=== PATIENT | male | born 1950 | race Caucasian/White ===

== ENCOUNTER 2024-04-27 13:20 | Emergency (ER) | payer OTHER, SELFPAY ==
--- NOTE | 2024-04-27 13:52 | XR_ITS ---
Examination:Right hip AP, lateral, AP pelvis 3 views Technique: Hip AP lateral, AP pelvis, 3 views Exam date and time:April 27, 2024 1413 hours INDICATIONS: Onset right hip pain today. FINDINGS: Prominent osteopenia Bilateral mild to moderate hip osteoarthritis No right or left hip fracture or dislocation Bones of the pelvis intact Small opaque foreign body projects inferior to the right femoral head IMPRESSION: Bilateral mild to moderate hip osteoarthritis Small opaque foreign body projects inferior to the right femoral head.
[2024-04-27 13:56] VITALS: BP 134/71; PULSE 86; RESP 18; TEMP 37.1; O2SAT 99; BMI 27.7
[2024-04-27] MEDS: HYDROcodone/APAP 5/325 TABLET 1 TAB PO (14:05)
--- NOTE | 2024-04-27 15:09 | EDNOTE_ITS ---
Lower Extremity Injury RME/HPI General Chief Complaint: Hip Injury/Pain Stated Complaint: RIGHT HIP PAIN X 4 DAYS Time Seen by Provider: 04/27/24 13:52 Arrival date/time: 04/27/24 13:20 73-year-old male presents to the emergency department complaints of right hip pain ongoing x 4 days patient reports he periodically has pain in the right hip radiating down the right limb. Patient reports no fever no nausea or vomiting no saddle anesthesia no loss of bowel or bladder no recent injury Limitations: no limitations Related Data Home Medications ?Medication ?Instructions ?Recorded ?Confirmed Sertraline Hcl * (ZOLOFT *) 1 tab PO HS #0 tabs 07/18/16 ferrous sulfate 325 mg (65 mg 325 mg PO BIDWM #0 tabs 07/18/16 iron) tablet (Feosol) Previous Rx's ?Medication ?Instructions ?Recorded Hydrocodone/Acetaminophen * (NORCO 1 tab PO Q6H PRN PAIN #14 tabs 07/18/16 5/325 *) hydrocodone 5 mg-acetaminophen 325 1 tab PO BID PRN pain #10 tabs 04/27/24 mg tablet meloxicam 7.5 mg tablet 7.5 mg PO QDAY 7 days #7 tabs 04/27/24 Allergies Allergy/AdvReac Type Severity Reaction Status Date / Time NKA* Allergy Uncoded 04/27/24 13:22 Review of Systems Review of Systems Systems Reviewed: All systems reviewed, normal except as documented Constitutional Constitutional: Reports system reviewed and no additional complaints, except as documented, Denies fever(s) and Denies headache(s) Eyes Eyes: Reports system reviewed and no additional complaints, except as documented and Denies blurry vision ENT Ears, Nose, Mouth, and Throat: Reports system reviewed and no additional complaints, except as documented, Denies headache(s), Denies nasal congestion and Denies nasal discharge Cardiovascular Cardiovascular: Reports system reviewed and no additional complaints, except as documented, Denies chest pain and Denies dyspnea Respiratory Respiratory: Reports system reviewed and no additional complaints, except as documented, Denies chest congestion, Denies cough and Denies dyspnea Gastrointestinal Gastrointestinal: Reports system reviewed and no additional complaints, except as documented and Denies abdominal pain Musculoskeletal Musculoskeletal: Reports system reviewed and no additional complaints, except as documented, Denies abnormal gait, Reports arthralgias, Denies numbness, Reports radiating pain into limb, Reports stiffness and Denies tingling Integumentary/Breasts Skin/Breast: Reports system reviewed and no additional complaints, except as documented and Denies rash Neurologic Neurologic: Reports system reviewed and no additional complaints, except as documented, Reports as per HPI, Denies abnormal gait, Denies headache(s), Denies numbness and Denies tingling Past Medical History Past Medical History CARDIAC: Negative Cardiac Disorders or Congestive Heart Failure RESPIRATORY: Negative Chronic Obstructive Pulmonary Disease (COPD) or Asthma GENITOURINARY: Negative Renal Disease ENDOCRINE: Positive Diabetes Mellitus Type 2; Negative Diabetes Mellitus Type 1 HEMATOLOGIC: Negative Sickle Cell Disease Social History SMOKING STATUS: Never smoker ED Exam General Limitations: Present no limitations General appearance: Present alert and in no apparent distress Head Head exam: Present atraumatic, normocephalic and normal inspection Eye Eye exam: Present normal appearance, PERRL and EOMI; Absent conjunctival injection ENT ENT exam: Present normal exam, normal oropharynx and mucous membranes moist Neck Neck exam: Present normal inspection, full ROM and trachea midline Chest Chest inspection: Present normal inspection and symmetric chest wall rise Respiratory Respiratory exam: Present normal lung sounds bilaterally; Absent respiratory distress Cardiovascular Cardiovascular exam: Present regular rate, normal rhythm and normal heart sounds Abdominal Exam Abdominal exam: Present soft and normal bowel sounds; Absent distention, tender ness, guarding, rebound or rigidity Extremities Exam Extremities exam: Present normal inspection, full ROM and tenderness (Right hip pain); Absent joint swelling Back Exam Back exam: Present normal inspection and full ROM Neurological Exam Neurological exam: Present alert, oriented X3, CN II-XII intact, normal gait and reflexes normal; Absent motor sensory deficit Psychiatric Psychiatric exam: Present normal affect and normal mood Skin Skin exam: Present warm, dry, intact and normal color Course Quality Measures none Orders Category Date Time Status XR hip RT w pelvis 2-3V Stat Exams 04/27/24 13:52 Completed HYDROcodone*/APAP 5/325 [[place] 5/325] Med 04/27/24 13:52 Discontinued 1 tab PO X1 ONE Vital Signs Vital signs: Vital Signs Temperature 98.8 F 04/27/24 13:56 Pulse Rate 86 04/27/24 13:56 Respiratory Rate 18 04/27/24 13:56 Blood Pressure 134/71 H 04/27/24 13:56 Pulse Oximetry (%) 99 04/27/24 13:56 Oxygen Delivery Method Room Air 04/27/24 13:56 O2 saturation 99% room air WNL Extremity Injury, Lower MDM Narrative MDM Narrative:: 73-year-old male presents to the emergency department complaints of right hip pain ongoing x 4 days patient reports he periodically has pain in the right hip radiating down the right limb. Patient reports no fever no nausea or vomiting no saddle anesthesia no loss of bowel or bladder no recent injury Imaging of right hip obtained no acute emergent findings noted Patient given pain medication here and discharged home with pain meds Patient discharged home in no distress to follow-up with primary care doctor in the next 24 to 48 hours and for any worsening symptoms to return to the ER immediately Patient data External records reviewed:: [facility] previous records Clinical information provided by:: patient Social determinants that could affect healthcare access:: none Patient has the following chronic illnesses:: See history How is presenting disease/condition affected by chronic disease/condition?: exacerbated by Evaluation data The following diagnostics were reviewed and interpreted by me:: radiology exam(s) Lab and/or radiology exams considered but not ordered:: Radiology obtain Interpretation Summary: Reviewed by me Medications / Prescriptions Medications or Prescriptions considered but not ordered:: Given Medication administrations:: Medication Administration History Discontinued Medications Hydrocodone Bitart/Acetaminophen (Hydrocodone/Apap 5/325 Tablet) 1 tab PO X1 ONE Stop: 04/27/24 13:53 Last Admin: 04/27/24 14:05 Dose: 1 tab Documented By: OA Given Consultations Consultation(s) initiated? (list below): No Diagnosis Extremity Injury, Lower Differential Diagnosis: other (Hip fracture, hip strain) Most likely diagnosis given after review of the tests above:: Hip sprain Admission Indicated Admission indicated?: not indicated Admission Request Was there a request for admission?: No Disposition Plan Disposition Plan: Discharge Discharge Attestation Discharge Attestation: The patient and all family members were given an opportunity to ask questions and understood the discharge instructions. Discharge instructions specifically effects, indications for sooner follow up or return to the emergency department, and the expected course of current diagnosis. Patient condition: Stable Discharge Plan Plan Patient Disposition: HOME (Self Care) Disposition Comment: Stable Prescriptions/Referrals Prescriptions/Med Rec: New hydrocodone-acetaminophen 5-325 mg tablet 1 tab PO BID MDD 10 PRN (Reason: pain) Qty: 10 0RF meloxicam 7.5 mg tablet 7.5 mg PO QDAY 7 Days Qty: 7 0RF No Action ferrous sulfate [Feosol] 1 TAB tablet 325 mg PO BIDWM Qty: 0 Sertraline Hcl * (ZOLOFT *) tablet 1 tab PO HS Qty: 0 Hydrocodone/Acetaminophen * (NORCO 5/325 *) 1 TAB tablet 1 tab PO Q6H PRN (Reason: PAIN) Qty: 14 0RF Referrals: Ney Ye MD [Primary Care Provider] - In 1 week Problem List Clinical Impression: Osteoarthritis of right hip Patient/Caregiver Discharge Instructions Education Materials: Osteoarthritis Additional Instructions: Please follow up with your primary care doctor in the next 24-48hrs for any worsening symptoms return here immediately Print Language: Belgian Stand Alone Forms: Mariel Award Info., Patient Portal Info Letter PA/ELECTRICIAN [employer]ATION ASSISTANT Supervising Physician PA/ERIKA Supervising Physician: Dr Hirsch
== END 2024-04-27 16:21 | disposition home or self-care (01) ==
PROVIDERS: Emergency Provider Emergency Medicine; PCP Family Medicine
DX: M16.11 Unilateral primary osteoarthritis, right hip (principal)
CPT/HCPCS: 73502; 99283; A9270

== ENCOUNTER 2024-05-18 16:54 | Inpatient (IN) | payer OTHER, SELFPAY ==
[2024-05-18] VITALS (7 sets, daily range): BP systolic 118–157; BP diastolic 55–70; PULSE 81–112; RESP 18–19; TEMP 36.4–36.6; O2SAT 97–100; BMI 26.7; BMI 26.9
--- NOTE | 2024-05-18 17:15 | EDRME_ITS ---
Rapid Medical Screening Exam E Arrival date/time: 05/18/24 16:54 73-year-old male with no known medical history presents to the emergency room with a chief complaint of a low hemoglobin level. Patient states he was called by the [facility] for a hemoglobin level of 5. Patient's only symptom is weakness and he denies any bleeding. I have greeted and performed a focused initial assessment of this patient. A comprehensive ED assessment and evaluation of the patient, analysis of all test results, and completion of the medical decision making process will be conducted by additional ED providers. Chief Complaint: General Adult/Misc Complain Vital signs: Vital Signs Temperature 97.5 F 05/18/24 17:10 Pulse Rate 112 H 05/18/24 17:10 Respiratory Rate 18 05/18/24 17:10 Blood Pressure 130/55 L 05/18/24 17:10 Pulse Oximetry (%) 97 05/18/24 17:10 Oxygen Delivery Method Room Air 05/18/24 17:10 Vital signs reviewed by provider: Yes
[2024-05-18 17:56] LABS: Basophils % (Auto) 1 % (0-2.5); Eosinophils # (Auto) 0.1 Thou/mm3 (0.0-0.5); Eosinophils % (Auto) 1 % (0-10); Immature Granulocytes % (Auto) 1 % (0-0); Immature Granulocytes Auto 0.03 Thou/mm3 (0.00-0.00); Lymphocytes # (Auto) 0.7 Thou/mm3 (1.0-4.8); Lymphocytes % (Auto) 11 % (10-50); Mean Corpuscular HGB Conc 32.3 g/dl (31.0-37.0); Mean Corpuscular Hemoglobin 29.1 pg (25.0-35.0); Mean Corpuscular Volume 90 fL (80-100); Monocytes # (Auto) 0.4 Thou/mm3 (0.0-0.8); Monocytes % (Auto) 7 % (0-12); Neutrophils % (Auto) 80 % (37-80); Nucleated Red Blood Cell % 0 /100 WBC (0); Platelet Count 225 Thou/mm3 (140-440); RDW Standard Deviation 48.8 fL (35.1-43.9); Red Blood Count 1.75 Miln/mm3 (4.50-5.90); White Blood Count 6.3 Thou/mm3 (3.8-10.6)
[2024-05-18 18:03] LABS: Hematocrit 15.8 % (41.0-53.0); Hemoglobin 5.1 g/dL (13.5-16.0)
[2024-05-18 18:12] LABS: INR 1.1 (0.9-1.3); Partial Thromboplastin Time 39.7 Seconds (22.0-36.0)
[2024-05-18 18:30] LABS: Alanine Aminotransferase 8 U/L (10-49); Albumin, Serum 3.9 gm/dL (3.4-4.8); Albumin/Globulin Ratio 1.6 (1.2-2.2); Alkaline Phosphatase 68 U/L (46-116); Anion Gap 12 (7-16); Aspartate Amino Transferase 17 U/L (0-34); BUN/Creatinine Ratio 15 Ratio (12-20); Bilirubin,Total 0.2 mg/dL (0.3-1.2); Blood Urea Nitrogen 54 mg/dL (9-23); Calcium 9.1 mg/dL (8.3-10.6); Calcium (Corrected) 9.2 mg/dL (8.5-10.1); Carbon Dioxide 18.1 mMol/L (20.0-31.0); Chloride 111 mMol/L (98-107); Creatinine (Component) 3.7 mg/dL (0.6-1.3); Estimated Creatinine Clearance 17.8 mL/min (>60); Globulin 2.5 gm/dL (2.3-3.5); Glucose 138 mg/dL (74-106); Osmolality,Calculated 297 (275-295); Potassium 5.7 mMol/L (3.4-5.1); Sodium 141 mMol/L (136-145); Total Protein 6.4 gm/dL (5.7-8.2); eGFR 17 See Note
--- NOTE | 2024-05-18 18:44 | XR_ITS ---
Examination: CT abdomen and pelvis without contrast. Coronal 3-D reconstructions. Sagittal 2-D reconstructions. Date and time of exam: May 18, 2024 1916 hrs. Comparison October 21, 2022 Indications: Upper gastrointestinal bleeding today CTDI: vol (mGy): 8.13 DLP: (mGycm): 188 Technique: Axial images of the abdomen have been obtained, 3 mm slice thickness Intravenous contrast material has not been administered. Low dose protocols were performed. One or more of the following dose reduction techniques were used; automated exposure control, adjustment of the mA and/or KV according to patient size, use of iterative reconstruction technique. Findings: Small right pleural effusion Numerous BB densities in the left chest and upper abdomen including in the liver and spleen Cholelithiasis No pancreatic or adrenal mass No hydronephrosis No bowel obstruction negative for pneumoperitoneum Normal appendix No diverticulitis Normal seminal vesicles Transverse prostate dimension 4.8 cm No bladder mass or bladder calculi, mild bladder wall thickening and small anterior bladder diverticulum Moderate osteopenia Impression: Findings are Sharp injury Cholelithiasis No CT findings of bowel obstruction diverticulitis or appendicitis Moderate prostatomegaly Cystitis pattern Consider nuclear medicine gastrointestinal bleeding study for CTA abdomen pelvis post intravenous contrast follow-up to the patient's presentation
--- NOTE | 2024-05-18 18:49 | PD.EDADULT ---
ED General RME/HPI General Chief complaint: General Adult/Misc Complain Stated complaint: NEEDS BLOOD TRANSFUSION, LOW HEM[facility]GLOBIN [facility] Time Seen by Provider: 05/18/24 18:01 Arrival date/time: 05/18/24 16:54 RME / HPI RME / HPI narrative: 73-year-old male patient with significant history of hypertension, hypercholesterolemia, was sent to us from the [place] for evaluation regarding low hemoglobin. Patient went to PCP yesterday and today was called to go to the emergency room for a severe anemia. Patient noticed black stool today however he was thinking it was secondary to tomato juice he was drinking. Patient denies any abdominal pain. Patient has been complaining of generalized body weakness, and feeling very tired. No vomiting blood. Patient is not taking any blood thinner. Related Data Home Medications ?Medication ?Instructions ?Recorded ?Confirmed Sertraline Hcl * (ZOLOFT *) 1 tab PO HS #0 tabs 07/18/16 ferrous sulfate 325 mg (65 mg 325 mg PO BIDWM #0 tabs 07/18/16 iron) tablet (Feosol) Previous Rx's ?Medication ?Instructions ?Recorded Hydrocodone/Acetaminophen * (NORCO 1 tab PO Q6H PRN PAIN #14 tabs 07/18/16 5/325 *) hydrocodone 5 mg-acetaminophen 325 1 tab PO BID PRN pain #10 tabs 04/27/24 mg tablet Allergies Allergy/AdvReac Type Severity Reaction Status Date / Time NKA Allergy Uncoded 05/18/24 16:57 Review of Systems Review of Systems Narrative Review of Systems: Review of system reviewed and within normal limits except mentioned in HPI ED Exam Narrative Physical exam: VITAL SIGNS: Reviewed. GENERAL APPEARANCE: Alert and interactive, follows commands, no acute distress, HEAD AND FACE: Non-traumatic. ENT: PERRL, pale conjunctiva, eyelid no trauma, Mucous membrane moist. NECK: Supple, nontender, no nuchal rigidity. CHEST: No tenderness, no crepitus, no paradoxical movement, no retractions. LUNGS: Clear, well ventilated, symmetric, no rales, no wheezing, no ronchi, no stridor, good breath sounds bilaterally. HEART: Regular rate, regular rhythm, no murmur, no gallops. ABDOMEN: Soft, positive bowel sounds, nondistended, no guarding, nontender, no rebound, no masses, RECTAL: Deferred. GENITAL: Deferred. NEUROLOGICAL: Gross motor function intact sensory function intact, Appropriate for age. MUSCULOSKELETAL: low back nontender, full range of motion. EXTREMITIES: Nontender, full range of motion. SKIN: Color pale, dry, no rash, no lacerations, no abrasions, no contusions. LYMPHATICS: Deferred. Course Quality Measures none Orders Category Date Time Status COVID-19 Screening Questionnaire NOW Care 05/18/24 19:19 Active Decision to Admit X1 Care 05/18/24 19:19 Active Occult Blood,Stool (Nursing) ONCE Care 05/18/24 18:37 Active Transfuse,blood/blood products ONCE Care 05/18/24 18:12 Active Consult to Gastroenterology Stat Cons 05/18/24 18:[address] abdomen pelvis wo con Stat Exams 05/18/24 18:44 Taken CBC Stat Lab 05/18/24 17:35 Completed CMP [Comprehensive Metabolic Panel] Stat Lab 05/18/24 17:35 Completed Occult Blood, Stool (LAB) Stat Lab 05/18/24 18:38 Completed PT [Prothrombin Time with INR] Stat Lab 05/18/24 17:35 Completed PTT [Partial Thromboplastin Time] Stat Lab 05/18/24 17:35 Completed Type and Screen Stat Lab 05/18/24 17:35 Results prbc [Red Blood Cells] Stat Lab 05/18/24 17:35 Results Pantoprazole Inj [Protonix Inj] Med 05/18/24 18:44 Discontinued 80 mg IV X1 ONE cefTRIAXone/D5w 1gm IV premix [Rocephin/D5w 1gm IV Med 05/18/24 18:45 Discontinued premix] 50 ml IV X1 Vital Signs Vital signs: Vital Signs Temperature 97.5 F 05/18/24 17:10 Pulse Rate 112 H 05/18/24 17:10 Respiratory Rate 18 05/18/24 17:10 Blood Pressure 130/55 L 05/18/24 17:10 Pulse Oximetry (%) 97 05/18/24 17:10 Oxygen Delivery Method Room Air 05/18/24 17:10 [facility] Patient data External records reviewed:: None Clinical information provided by:: patient and family Social determinants that could affect healthcare access:: none Patient has the following chronic illnesses:: Hypertension How is presenting disease/condition affected by chronic disease/condition?: uneffected by Evaluation data The following diagnostics were reviewed and interpreted by me:: lab results and radiology exam(s) Lab and/or radiology exams considered but not ordered:: None Interpretation Summary: Hemoglobin of 5.1 hematocrit of 15.8. Platelets normal rest of the labs is significant for potassium 5.7, creatinine of 3.7. Medications Medications considered but not ordered:: None Medication administrations:: Medication Administration History Discontinued Medications Ceftriaxone Sodium/Dextrose (Rocephin/D5w 1gm Iv Premix) 50 mls @ 100 mls/hr IV X1 ONE Stop: 05/18/24 19:14 Pantoprazole Sodium (Pantoprazole Inj 40 Mg Vial) 80 mg IV X1 ONE Stop: 05/18/24 18:45 Supraduction IV, pantoprazole IV, and IV fluids for hydration Consultations Consultation(s) initiated? (list below): Yes Consultation #1 (Physician, Specialty, Details): Spoke with Dr. Choi, GI specialist on-call, thank you Dr. Choi Diagnosis Differential Diagnosis ED Complaint MDM: Upper GI bleed, CKD, hypertension Most likely diagnosis given after review of the tests above:: Upper GI bleed Admission Indicated Admission indicated?: indicated Explain why admission is indicated or not indicated:: patient is to be admitted for further management. Admission Request Was there a request for admission?: Yes Admission Attestation Admission request attestation: Discussed case with [Dr. Murrieta] from Hospitalist service regarding admission. Discussed patients ED course, exam findings, labs, and radiology results. The Hospitalist [agree] to accept the patient for admission. Disposition Plan Disposition Plan: Admit Medical Decision Making MDM Narrative MDM Narrative: 73-year-old male patient with significant history of hypertension, hypercholesterolemia, [facility] Patient went to PCP yesterday and today was called to go to the emergency room for a severe anemia. Patient noticed black stool today however he was thinking it was secondary to tomato juice he was drinking. Patient denies any abdominal pain. Patient has been complaining of generalized body weakness, and feeling very tired. No vomiting blood. Patient is not taking any blood thinner. Patient's workup significant for hemoglobin of 5.1 we did a rectal exam, came back with black tarry stool strongly positive occult blood. Spoke with Dr. Choi, GI specialist on-call, discussed the case, and thank you Dr. Choi for accepting the consult Differential Diagnosis Differential Diagnosis: Upper GI bleed, CKD, hypertension Lab Data 05/18/24 17:35 05/18/24 17:35 Labs: Lab Results 05/18/24 05/18/24 Range/Units 17:35 18:38 WBC 6.3 (3.8-10.6) Thou/mm3 RBC 1.75 L* (4.50-5.90) Miln/mm3 Hgb 5.1 L* (13.5-16.0) g/dL Hct 15.8 L* (41.0-53.0) % MCV 90 (80-100) fL MCH 29.1 (25.0-35.0) pg MCHC 32.3 (31.0-37.0) g/dl RDW Std Deviation 48.8 H (35.1-43.9) fL Plt Count 225 (140-440) Thou/mm3 Neut % (Auto) 80 (37-80) % Lymph % (Auto) 11 (10-50) % [place] % (Auto) 7 (0-12) % Eos % (Auto) 1 (0-10) % Baso % (Auto) 1 (0-2.5) % Neut # (Auto) 5.0 (1.8-7.7) Thou/mm3 Lymph # (Auto) 0.7 L (1.0-4.8) Thou/mm3 [place] # (Auto) 0.4 (0.0-0.8) Thou/mm3 Eos # (Auto) 0.1 (0.0-0.5) Thou/mm3 Baso # (Auto) 0.0 (0.0-0.2) Thou/mm3 Immature Gran # (Auto) 0.03 H (0.00-0.00) Thou/mm3 Absolute Nucleated RBC 0.00 (0.00-0.00) Thou/mm3 Immature Gran % 1 H (0-0) % Nucleated RBC % 0 (0) /100 WBC PT 12.0 (9.0-12.2) Seconds INR 1.1 (0.9-1.3) APTT 39.7 H (22.0-36.0) Seconds Sodium 141 (136-145) mMol/L Potassium 5.7 H (3.4-5.1) mMol/L Chloride 111 H (98-107) mMol/L Carbon Dioxide 18.1 L (20.0-31.0) mMol/L Anion Gap 12 (7-16) BUN 54 H (9-23) mg/dL Creatinine 3.7 H (0.6-1.3) mg/dL Estim Creat Clear Calc 17.8 L (>60) mL/min eGFR 17 L (60 - ) See Note BUN/Creatinine Ratio 15 (12-20) Ratio Glucose 138 H (74-106) mg/dL Calculated Osmolality 297 H (275-295) Calcium 9.1 (8.3-10.6) mg/dL Corrected Calcium 9.2 (8.5-10.1) mg/dL Total Bilirubin 0.2 L (0.3-1.2) mg/dL AST 17 (0-34) U/L ALT 8 L (10-49) U/L Alkaline Phosphatase 68 (46-116) U/L Total Protein 6.4 (5.7-8.2) gm/dL Albumin 3.9 (3.4-4.8) gm/dL Globulin 2.5 (2.3-3.5) gm/dL Albumin/Globulin Ratio 1.6 (1.2-2.2) Stool Occult Blood Positive A (Negative) Blood Type O Positive Antibody Screen NEGATIVE Crossmatch See Detail Blood Bank Wristband ID Yes Discharge Plan Plan Patient Disposition: Admit Acute Care w/in Hospital Disposition Comment: Guarded Prescriptions/Referrals Prescriptions/Med Rec: No Action ferrous sulfate [Feosol] 1 TAB tablet 325 mg PO BIDWM Qty: 0 Sertraline Hcl * (ZOLOFT *) tablet 1 tab PO HS Qty: 0 Hydrocodone/Acetaminophen * (NORCO 5/325 *) 1 TAB tablet 1 tab PO Q6H PRN (Reason: PAIN) Qty: 14 0RF hydrocodone-acetaminophen 5-325 mg tablet 1 tab PO BID MDD 10 PRN (Reason: pain) Qty: 10 0RF Referrals: Leonid Raman MD [Primary Care Provider] - In 1 week Problem List Clinical Impression: Acute upper gastrointestinal bleeding, Severe anemia Patient/Caregiver Discharge Instructions Print Language: Hong Konger Stand Alone Forms: Mariel Award Info., Patient Portal Info Letter
[2024-05-18 18:59] LABS: OBS Developer Lot # 2-24-551749; OBS Performed By MADRG3; OBS QC OK? Yes; Occult Blood, Stool Positive (Negative)
--- NOTE | 2024-05-18 21:36 | ESHP_ITS ---
Documentation for date of: 05/18/24 [facility] History of Present Illness History of present illness: Mr. Mchugh is a 73-year-old male with past medical history of hypertension, hypercholesterolemia and diabetes mellitus who presented to [facility] on 05/18/2024 with a chief complaint of low hemoglobin. Patient's at bedside, patient is hard of hearing and assisted in procuring history, patient complains of generalized body weakness, tiredness and black stools. Patient reported that he followed up with his PCP at [facility] and did lab work received a call from [facility] for further evaluation regarding low hemoglobin. Patient did notice black stools however attributed to his diet. Otherwise patient denies any diarrhea, nausea, vomiting and other symptoms. Patient complains of right calf pain and right hip pain, no edema noted, patient does have history of extensive osteoarthritis. ED Course: ED Vitals: On presentation in ED BP 130/55, P 112, RR 18, temp 97.5, O2 sat 97 on room air ED Labs: Labs in ED significant for RBC 1.75, hemoglobin 5.1, hematocrit 15.8, APTT 39.7, Potassium 5.7, chloride 111, bicarb 18.1, BUN 54, creatinine 3.7, GFR 17, glucose 138, osmolality 297, total bilirubin 0.2. Stool occult blood positive in ED. ED Imaging:CT abdomen pelvis shows sharp injury, cholelithiasis, moderate prostatomegaly, cystitis. ED Treatment:Patient was given Protonix 80 mg IV x 1, ceftriaxone x 1 in ED. GI was consulted in ED for further workup. Review of Systems Review of Systems Narrative Review of Systems: ROS: -CONSTITUTIONAL: Denies weight loss, fever and chills. -HEENT: Denies changes in vision and hearing. -RESPIRATORY: Denies SOB and cough. -CV: Denies palpitations and Chest Pain. -GI: Denies abdominal pain, nausea, vomiting,constipation and diarrhea. Positive for dark stools. -: Denies dysuria and urinary frequency. -MSK: Denies myalgia and joint pain. Positive for right calf pain. -SKIN: Denies rash and pruritus. -NEUROLOGICAL: Denies headache and syncope. -PSYCHIATRIC: Denies recent changes in mood. Denies anxiety and depression. Past Medical History Past Medical History Comments PMH COMMENT: PMH: Positive for hypertension, hypercholesterolemia, osteoarthritis and diabetes mellitus PSHx: Left arm surgery, Shrapnel injury during active service. Allergies: No known drug and food allergies Social history: -Smoking: Positive for heavy smoking in past, reports more than 40 pack years -Alcohol Use: Positive for alcohol use in past, occasional alcohol use no -Illicit Drug Use: Denies -Occupation: [employer] -Martial Status: Family History: Denies pertinent family history. Exam Vital Signs Temp Pulse Resp BP Pulse Ox O2 Del Method 97.9 F 86 19 138/70 H 100 Room Air 05/18/24 21:33 05/18/24 21:33 05/18/24 21:33 05/18/24 21:33 05/18/24 21:05/18/24 21:33 Narrative Exam Physical Exam General: Awake and in no acute distress. Conversational and non-toxic appearing. Hard of hearing. HEENT: Normocephalic, atraumatic, mucous membranes dry. Heart: Regular rate and rhythm, no murmurs. Lungs: Clear to auscultation with no wheezing or crackles. Abdomen: Soft, nondistended, nontender, positive bowel sounds. ?No guarding or rebound tenderness. Neurologic: Alert and oriented x3, no gross neurological deficit, and patient able to move all 4 extremities. Extremities: No edema. Skin: No rash or ecchymoses. Results: Labs 05/18/24 17:35 05/18/24 21:11 Labs: Short CBC 05/18/24 Range/Units 17:35 WBC 6.3 (3.8-10.6) Thou/mm3 Hgb 5.1 L* (13.5-16.0) g/dL Hct 15.8 L* (41.0-53.0) % Plt Count 225 (140-440) Thou/mm3 BMP 05/18/24 17:35 Sodium 141 Potassium 5.7 H Chloride 111 H Carbon Dioxide 18.1 L BUN 54 H Creatinine 3.7 H Glucose 138 H Calcium 9.1 Liver Function 05/18/24 Range/Units 17:35 Total Bilirubin 0.2 L (0.3-1.2) mg/dL AST 17 (0-34) U/L ALT 8 L (10-49) U/L Alkaline Phosphatase 68 (46-116) U/L Albumin 3.9 (3.4-4.8) gm/dL Quality Measures Quality Measures none Advance care planning discussed with:: patient and spouse Medications Home Medications and Allergies Home Medications ?Medication ?Instructions ?Recorded ?Confirmed ?Type Sertraline Hcl * (ZOLOFT *) 1 tab PO HS #0 tabs History ferrous sulfate 325 mg (65 mg 325 mg PO BIDWM #0 tabs 07/18/16 History iron) tablet (Feosol) Allergies Allergy/AdvReac Type Severity Reaction Status Date / Time NKA Allergy Uncoded 05/18/24 16:57 Visit Medications Acetaminophen (Acetaminophen 325 Mg Tablet) 650 mg PO Q6H PRN PRN Reason: Mild Pain (1-3; Fever >101.5 Stop: 06/17/24 20:33 Albuterol/Ipratropium (Albuterol/Ipratropium (Duoneb) Rt Whitley 3 Ml Nebu) 3 ml INH Q6HRRT PRN PRN Reason: SHORTNESS OF BREATH OR WHEEZE Stop: 06/17/24 20:33 Dextrose (Dextrose 50%-Water Inj 50 Ml Syringe) 25 ml IV Q15MIN PRN PRN Reason: BG 50-70 responsive npo pt Stop: 06/17/24 20:41 Dextrose (Dextrose 50%-Water Inj 50 Ml Syringe) 50 ml IV Q15MIN PRN PRN Reason: BG <50 OR BG <70 & pt unresponsive Stop: 06/17/24 20:41 Glucagon (Glucagon Inj 1 Mg Vial) 1 mg IM Q15MIN PRN PRN Reason: BG <70, and no IV access Lactated Ringer's (Lactated Ringers) 1,000 mls @ 75 mls/hr IV .[id number] CELESTINA Stop: 06/17/24 20:44 Insulin Human Lispro (Insulin Lispro (Admelog) 1 Unit/0.01 Ml Unit) 0 unit SC AC CELESTINA; Protocol Stop: 06/18/24 07:29 Ondansetron HCl (Ondansetron Inj 2 Mg/Ml Inj 2 Ml) 4 mg IV Q6H PRN; Protocol PRN Reason: NAUSEA OR VOMITING Stop: 06/17/24 20:33 Pantoprazole Sodium (Pantoprazole Inj 40 Mg Vial) 40 mg IVP Q12HR CELESTINA Stop: 06/17/24 20:59 Discontinued Medications Ceftriaxone Sodium/Dextrose (Rocephin/D5w 1gm Iv Premix) 50 mls @ 100 mls/hr IV X1 ONE Stop: 05/18/24 19:14 Pantoprazole Sodium (Pantoprazole Inj 40 Mg Vial) 80 mg IV X1 ONE Stop: 05/18/24 18:45 Assessment & Plan Plan Assessment and plan: Summary: Mr. Mchugh is a 73-year-old male with past medical history of hypertension, hypercholesterolemia and diabetes mellitus who presented to [facility] on 05/18/2024 with a chief complaint of low hemoglobin. Patient admitted for GI Bleed Workup. #GI bleed upper versus lower #Melena #Anemia secondary to blood loss Followed up with his PCP at [facility] and did lab work received a call from [facility] for further evaluation regarding low hemoglobin, Hgb in ED 5.1, patient complains of dark stools, stool occult blood positive in ED. CT abdomen pelvis shows sharp injury, cholelithiasis, moderate prostatomegaly, cystitis. Plan: -IV Protonix twice daily -Clear liquid diet -Consulted GI, appreciate recommendations -Transfused 2 unit PRBC, follow posttransfusion H&H -Monitor CBC closely -IV LR maintenance fluids 75 cc/h -Follow iron panel, ferritin, vitamin B 12, folate, LDH, reticulocyte count #Acute kidney injury, likely prerenal #Hyperkalemia Potassium 5.7 on presentation, BUN 56, creatinine 3.5, GFR 18 on presentation. ASHANTI likely prerenal secondary to blood loss. Plan: -Repeat renal panel -LR maintenance fluids -Renally dose medication -Avoid nephrotoxic agent -Follow CMP in a.m. #Diabetes mellitus #Hypertension #Hyperlipidemia Pending med reconciliation -Sliding scale insulin -Follow hemoglobin A1c in a.m. -Hypoglycemia protocol in place -Fingerstick blood glucose monitoring -Resume home meds once reconciled -Blood pressure soft, continue to monitor -Patient reports using inhaler at home, DuoNebs as needed DVT prophylaxis: SCDs GI prophylaxis: IV Protonix twice daily Diet: Clear liquid diet Lines: Peripheral IV Code status: Full code Case discussed with Attending Dr. Kearns. Victorino Murrieta PGY1 Internal medicine Disclaimer: This note was dictated by speech recognition. Minor errors in laboratory chemical assistant may be present due to voice recognition software. Attending Provider Attestation/Addendum 73-year-old patient was referred from the [facility] for low hemoglobin. The patient also noticed melena over the last few days. Imaging obtained chest and abdomen showed multiple densities, foreign body that has been present since 2022. Patient is being admitted for further endoscopic workup packed red blood cells. We will continue to monitor his hemoglobin and hematocrit. His blood pressure is stable. He is not tachycardic. Review of all medications.
[2024-05-18] MEDS: RINGERS LACTATED 1000 ML 1,000 ML 75 ML IV (21:42)
[2024-05-18] MEDS: PANTOPRAZOLE INJ 40 MG VIAL 80 MG IV (21:42)
[2024-05-18 22:05] LABS: Albumin, Serum 3.8 gm/dL (3.4-4.8); Anion Gap 8 (7-16); BUN/Creatinine Ratio 16 Ratio (12-20); Blood Urea Nitrogen 56 mg/dL (9-23); Calcium 8.8 mg/dL (8.3-10.6); Chloride 115 mMol/L (98-107); Creatinine (Component) 3.5 mg/dL (0.6-1.3); Estimated Creatinine Clearance 18.8 mL/min (>60); Glucose 88 mg/dL (74-106); Osmolality,Calculated 301 (275-295); Phosphorous 5.1 mg/dL (2.4-5.1); Potassium 5.3 mMol/L (3.4-5.1); Sodium 144 mMol/L (136-145); eGFR 18 See Note
--- NOTE | 2024-05-18 22:23 | XR_ITS ---
Examination: Venous duplex lower extremity sonogram, bilateral. Date and time of exam: May 18, 2024 1028 hrs. Indications: Bilateral calf pain onset today Technique: Multiple sonographic images of the deep venous system have been obtained. B-mode/2-D grayscale imaging of vascular structures and Doppler spectral analysis (waveforms) and color performed Both legs are examined. Findings: Deep venous systems do not demonstrate abnormal echogenicity. All visualized deep veins exhibit compressibility. All visualized deep veins exhibit augmentation. Impression: Negative for deep vein thrombosis
--- NOTE | 2024-05-18 22:47 | PD.IMCONS ---
HPI Data of Consult Requesting Physician: Mariano Kearns MD Primary Care Provider: Leonid Raman MD Consult Narrative Reason for consult: Melena, H/H5.04/19.8 History of present illness: 73 years old male presented to the hospital with weakness sent by the PCP he has been having melanotic stools Rectal exam showed grossly Hemoccult positive stool Presenting hemoglobin hematocrit 5.1 and 15.8 with a platelet count of 20 25,000 BUN/creatinine 56 and 3.5 Patient has a history of essential hypertension hyperlipidemia diabetes mellitus type 2 CT scan of the abdomen pelvis without contrast showed cholelithiasis cc:: cc: Mariano Kearns MD Review of Systems Review of Systems Systems Reviewed: All systems reviewed, normal except as documented Past Medical History Surgical History OTHER SURGICAL HX: As in the history of present illness Meds Home Medications and Allergies Home Medications ?Medication ?Instructions ?Recorded ?Confirmed ?Type Sertraline Hcl * (ZOLOFT *) 1 tab PO HS #0 tabs 07/18/16 History ferrous sulfate 325 mg (65 mg 325 mg PO BIDWM #0 tabs 07/18/16 History iron) tablet (Feosol) Allergies Allergy/AdvReac Type Severity Reaction Status Date / Time NKA Allergy Uncoded 05/18/24 16:57 Exam Vital Signs Temp Pulse Resp BP Pulse Ox O2 Del Method 97.6 F 88 18 145/65 H 99 Room Air 05/18/24 22:31 05/18/24 22:31 05/18/24 22:31 05/18/24 22:31 05/18/24 22:31 05/18/24 21:33 Constitutional Comments: Chronically ill-appearing Routine Respiratory Exam Comments: Normal to auscultation Routine Abdominal Exam Comments: Soft nontender Results Labs 05/18/24 17:35 05/18/24 21:11 Labs: Short CBC 05/18/24 Range/Units 17:35 WBC 6.3 (3.8-10.6) Thou/mm3 Hgb 5.1 L* (13.5-16.0) g/dL Hct 15.8 L* (41.0-53.0) % Plt Count 225 (140-440) Thou/mm3 BMP 05/18/24 05/18/24 17:35 21:11 Sodium 141 144 Potassium 5.7 H 5.3 H Chloride 111 H 115 H Carbon Dioxide 18.1 L 21.0 BUN 54 H 56 H Creatinine 3.7 H 3.5 H Glucose 138 H 88 D Calcium 9.1 8.8 Liver Function 05/18/24 05/18/24 Range/Units 17:35 21:11 Total Bilirubin 0.2 L (0.3-1.2) mg/dL AST 17 (0-34) U/L ALT 8 L (10-49) U/L Alkaline Phosphatase 68 (46-116) U/L Albumin 3.9 3.8 (3.4-4.8) gm/dL Assessment and Plan Additional Assessment & Plan Additional Plan: # Melena # Acute posthemorrhagic anemia Plan Agree with the blood transfusion Consent obtained for fiberoptic esophagogastroduodenoscopy with possible therapeutic intervention possible biopsy under intravenous moderate sedation scheduled for tomorrow Clear liquid diet N.p.o. at 9 AM tomorrow Other medical problems include Essential hypertension Hyperlipidemia Diabetes mellitus type 2 Renal insufficiency
--- NOTE | 2024-05-18 22:49 | PC.NURSE ---
Report called . pt taken to on monitor by rn
--- NOTE | 2024-05-18 23:32 | PC.NURSE ---
report called to danis SINGH. pt taken to by myself on monitor
[2024-05-19] VITALS (10 sets, daily range): BP systolic 126–154; BP diastolic 67–77; PULSE 64–93; RESP 15–21; TEMP 36.3–36.7; O2SAT 94–98
[2024-05-19 04:31] LABS: Collection Type, Urine Clean Catch
--- NOTE | 2024-05-19 04:38 | EKG_ITS ---
[facility] Test Date: 2024-05-19 Pat Name: FADIA MOYA Department: Room: S380A Gender: Male Cover Cutter: [id number] : 1950 Requested By: Mariano Matthews Order Number: [id number] Reading MD: Mariano Matthews Measurements Intervals [place] Rate: 71 P: 54 NH: 157 QRS: 21 QRSD: 74 T: 46 QT: 399 QTc: 434 Interpretive Statements SINUS RHYTHM MINIMAL VOLTAGE CRITERIA FOR LVH, CONSIDER NORMAL VARIANT [MEETS CRITERIA IN ONE OF: R(aVL), S(V1), R(V5), R(V5/V6)+S(V1)] WARNING: DATA QUALITY MAY AFFECT INTERPRETATION Compared to ECG 10/21/2022 20:18:58 No significant changes /store/S0/[id number]/ecg/[id number].pdf
[2024-05-19 04:54] LABS: Bilirubin,Urine Negative (Negative); Blood,Urine Negative (Negative); Clarity,Urine Clear (Clear/Hazy); Color,Urine Colorless (Lt Yel-Yel); Glucose, Urine Negative (Negative); Ketones,Urine Negative (Negative); Leukocyte Esterase,Urine Positive (Negative); Nitrite,Urine Negative (Negative); PH,Urine 5.5 (5.0-7.0); Protein,Urine Negative (Neg - Trace); RBC,Urine 1 /hpf (0-3); Specific Gravity,Urine 1.014 (1.001-1.035); Squamous Epithelial Cell,Urine < 1 /hpf (0-5); Urobilinogen,Urine Negative mg/dL (0.0-1.0); WBC,Urine 5 /hpf (0-5)
[2024-05-19 05:47] LABS: Basophils % (Auto) 1 % (0-2.5); Eosinophils # (Auto) 0.2 Thou/mm3 (0.0-0.5); Eosinophils % (Auto) 3 % (0-10); Hematocrit 21.6 % (41.0-53.0); Immature Granulocytes % (Auto) 0 % (0-0); Immature Granulocytes Auto 0.01 Thou/mm3 (0.00-0.00); Immature Reticulocyte Fraction 23.4 % (2.3-13.4); Lymphocytes # (Auto) 1.1 Thou/mm3 (1.0-4.8); Lymphocytes % (Auto) 19 % (10-50); Mean Corpuscular HGB Conc 33.3 g/dl (31.0-37.0); Mean Corpuscular Hemoglobin 28.8 pg (25.0-35.0); Mean Corpuscular Volume 86 fL (80-100); Monocytes # (Auto) 0.5 Thou/mm3 (0.0-0.8); Monocytes % (Auto) 10 % (0-12); Neutrophils # (Auto) 3.8 Thou/mm3 (1.8-7.7); Neutrophils % (Auto) 68 % (37-80); Nucleated Red Blood Cell % 0 /100 WBC (0); Platelet Count 198 Thou/mm3 (140-440); RDW Standard Deviation 49.1 fL (35.1-43.9); Reticulocyte % (Auto) 2.1 % (0.5-1.5); Reticulocyte Absolute Auto 51.8 Biln/L (25.0-75.0); Reticulocyte Hgb Content 31.6 pg (28.0-35.0); White Blood Count 5.6 Thou/mm3 (3.8-10.6)
[2024-05-19 06:02] LABS: INR 1.1 (0.9-1.3); Partial Thromboplastin Time 36.8 Seconds (22.0-36.0); Prothrombin Time 11.8 Seconds (9.0-12.2)
[2024-05-19 06:06] LABS: Hemoglobin 7.2 g/dL (13.5-16.0)
[2024-05-19 06:36] LABS: Folate 7.24 ng/mL (>5.38); Vitamin B12 262 pg/mL (211-911)
[2024-05-19 06:46] LABS: Ferritin 58 ng/mL (10.5-307.3); Iron 70 mcg/dL (65-175); Percent Iron Saturation 25 % (20-55); Total Iron Binding Capacity 271 mcg/dL (250-425); Unsaturated Iron Binding 201 (225-295)
[2024-05-19 06:52] LABS: Glucose Estimated Average 111 mg/dL (80-131); Hemoglobin A1C 5.5 % Hgb (4.8-6.0)
[2024-05-19 06:55] LABS: Alanine Aminotransferase 9 U/L (10-49); Albumin, Serum 3.7 gm/dL (3.4-4.8); Albumin/Globulin Ratio 1.8 (1.2-2.2); Alkaline Phosphatase 61 U/L (46-116); Anion Gap 9 (7-16); Aspartate Amino Transferase 14 U/L (0-34); BUN/Creatinine Ratio 16 Ratio (12-20); Bilirubin,Total 0.2 mg/dL (0.3-1.2); Blood Urea Nitrogen 56 mg/dL (9-23); Calcium 8.7 mg/dL (8.3-10.6); Calcium (Corrected) 8.9 mg/dL (8.5-10.1); Carbon Dioxide 18.8 mMol/L (20.0-31.0); Cardiac Risk Estimate 2.5 RATIO (4.0-6.7); Chloride 114 mMol/L (98-107); Cholesterol 79 mg/dL (132-200); Creatinine (Component) 3.4 mg/dL (0.6-1.3); Estimated Creatinine Clearance 19.4 mL/min (>60); Free T4 (Free Thyroxine) 1.03 ng/dL (0.89-1.76); Globulin 2.1 gm/dL (2.3-3.5); Glucose 82 mg/dL (74-106); HDL Cholesterol 31 mg/dL (40-60); LDH (Lactate Dehydrogenase) 171 U/L (120-246); LDL Cholesterol,Calculated 31 mg/dL (0-130); Magnesium 1.7 mg/dL (1.6-2.6); Osmolality,Calculated 297 (275-295); Phosphorous 4.8 mg/dL (2.4-5.1); Potassium 5.4 mMol/L (3.4-5.1); Sodium 142 mMol/L (136-145); Thyroid Stimulating Hormone 2.15 uIU/mL (0.55-4.78); Total Protein 5.8 gm/dL (5.7-8.2); Triglycerides 83 mg/dL (30-150); eGFR 18 See Note
[2024-05-19] MEDS: PANTOPRAZOLE INJ 40 MG VIAL IVP (08:21)
--- NOTE | 2024-05-19 09:22 | PC.SS ---
Patient Jeison Grant is a 73 Year old male admitted for GI workup. SS met with patient at bedside, however patient appeared to be confused. SS attempted to contact patient's , however no response. SS contacted patient's daughter, Deepti De La O via phone and she informed SS that patient lives at home with his and herself. Patient's surrogate Decision maker is his , Amber Mchugh [phone]. Prior to admission patient utilized a Cane to assist with ambulation. Choice of pharmacy is [facility]. Patient's daughter reports that patient is able to complete all ADL's independently. Patient will return back home at time of discharge. Patient's family will provide transportation. Next of kin: , Amber Mchugh Discharge Plan: Home
[2024-05-19] MEDS: TAMSULOSIN HCL 0.4 MG CAPSULE PO (11:50)
[2024-05-19] MEDS: FINASTERIDE 5 MG TABLET PO (11:50)
[2024-05-19] MEDS: RINGERS LACTATED 1000 ML 1,000 ML 140 ML IV (11:50)
[2024-05-19] MEDS: MORPHINE SULF INJ 10 MG/ML VIAL 2 MG IVP ×3 (13:22→16:58)
--- NOTE | 2024-05-19 14:06 | PC.NURSE ---
Multiple unsuccessful urinary catheter attempts with Dr. Rene at bedside. Bladder scan showing 928ml. pt is able to void, but very small amounts. unable to empty bladder. No orders given at this time. MD to call urology to come see patient. will continue to monitor
[2024-05-19] MEDS: LIDOCAINE JELLY 2% (Urojet) 10 ML TUBE TOP (16:58)
[2024-05-19] MEDS: NICOTINE PATCH 21 MG/24 HR PATCH.TD24 TOP (17:01)
--- NOTE | 2024-05-19 17:35 | PC.NURSE ---
Called [facility], they are at capacity and no dot have urology, I spoke with Juan Carlos @ [phone].
--- NOTE | 2024-05-19 17:42 | PC.NURSE ---
[facility] @ [phone], spoke with Scott, they do not have urology services.
--- NOTE | 2024-05-19 17:49 | PC.NURSE ---
Called [facility] spoke with Rupinder restrepo. declined due to capacity, requet to fax face sheet and vital signs to [phone].
--- NOTE | 2024-05-19 18:43 | ESDS_ITS ---
Planned Discharge Date 05/19/24 DS: Providers Provider Date of admission: 05/18/24 20:34 Primary care physician: Leonid Raman MD Admitting Provider: Mariano Kearns MD Attending Provider on Admission: Yomi Rene DO Consults: 05/18/24 18:44 Consult to Gastroenterology Stat Comment: Upper GI bleed Consulting Provider: Nelly Choi 05/19/24 14:47 Consult to Urology Stat Comment: urinary retention, post renal ASHANTI, failed bennett Consulting Provider: Kofi Buchanan Attending Provider on DC: Yomi Rene DO Discharging Provider: Cayetano Kaiser DO DS: Diagnosis Problem List Completed Was Problem List Reviewed/Reconciled?: Yes Hospital Course Hospital Course Hospital course: Discharge summary: Patient came in for a GI bleed and was found to have a hemoglobin of 5.1. We gave him 2 units of PRBCs and hemoglobin up trended to 7.2. In the process of prepping for colonoscopy he developed severe postrenal obstruction due to BPH with a creatinine of 3.4. BUN of 56. Recent CT showed moderate prostamegaly. Bedside bladder scan retaining over a liter of urine. We tried to place a Bennett cath multiple times with different Bennett sizes and each time had failed attempts. Urology not reproduction specialist at our facility at this time. We reached out to interventional radiology, general surgery and emergency medicine who were not c omfortable/unable to place a emergent suprapubic catheter. We attempted to transfer but were denied by 3 facilities and in the process patient left AGAINST MEDICAL ADVICE. Discharge diagnosis: #GI bleed upper versus lower #Melena #Anemia secondary to blood loss #Acute kidney injury, likely prerenal #Hyperkalemia #Diabetes mellitus #Hypertension #Hyperlipidemia Discharge instructions: You left AGAINST MEDICAL ADVICE. Patient was evaluated and seen with my attending Dr. Rene, Cayetano Kaiser DO, PGY1 Time Spent with Patient Time attestation: Total time spent providing and/or coordinating discharge services: Exam Vital Signs Temp Pulse Resp BP Pulse Ox O2 Del Method 98.1 F 70 17 126/67 98 Room Air 05/19/24 16:00 05/19/24 16:00 05/19/24 16:00 05/19/24 16:00 05/19/24 16:05/19/24 16:00 Narrative Exam Constitutional: Appears uncomfortable secondary to pain Eyes:no conjunctival injection , symmetrical lids. ENMT: Moist Mucous Membranes CVS: Regular rate and rhythm RESP: no increased work of breathing, equal chest rise and fall bilaterally GI: Soft, distended, tender in the suprapubic region MSK: No lower extremity edema Skin: Warm to touch, Dry. No rashes or lesions. Neuro: Alert and oriented Psych: Appropriate mood and affect. Discharge Plan Plan Patient Disposition: Left Against Medical Advice Disposition Comment: Guarded Prescriptions/Referrals Prescriptions/Med Rec: No Action ferrous sulfate [Feosol] 1 TAB tablet 325 mg PO BIDWM Qty: 0 Sertraline Hcl * (ZOLOFT *) tablet 1 tab PO HS Qty: 0 Hydrocodone/Acetaminophen * (NORCO 5/325 *) 1 TAB tablet 1 tab PO Q6H PRN (Reason: PAIN) Qty: 14 0RF hydrocodone-acetaminophen 5-325 mg tablet 1 tab PO BID MDD 10 PRN (Reason: pain) Qty: 10 0RF lisinopril 40 mg tablet 40 mg PO QDAY metformin 500 mg tablet 500 mg PO BID bupropion HCl 100 mg tablet 100 mg PO BID mirtazapine 45 mg tablet 45 mg PO QDAY rosuvastatin [Crestor] 5 mg tablet 5 mg PO QDAY nicotine (polacrilex) [Nicorette] 2 mg gum 2 mg buccal Q8H PRN (Reason: nicotine cravings) meloxicam 7.5 mg tablet 7.5 mg PO QDAY Referrals: Leonid Raman MD [Primary Care Provider] - Patient/Caregiver Discharge Instructions Other Discharge Activity Instructions:: You came in for a GI bleed and were found to have a hemoglobin of 5.1. We gave you 2 units of PRBCs and your hemoglobin up trended to 7.2. In the process of prepping you for colonoscopy we found that you had severe postrenal obstruction due to BPH with a creatinine of 3.4. BUN of 56. Recent CT shows that you have moderate prostamegaly. Bedside bladder scan showed you were retaining over a liter of urine. We tried to place a Bennett cath multiple times with different Bennett sizes and each time had failed attempts. Urology not reproduction specialist at our facility at this time. We reached out to interventional radiology, general surgery and emergency medicine who were not comfortable placing a emergent suprapubic Bennett catheter. We attempted to transfer you but were denied by 3 facilities and in the process you decided to leave AGAINST MEDICAL ADVICE. Print Language: Ivorian Quality Discharge Quality Measures VTE prophylaxis MD Attestestation Attestation I have discussed and was present for the essential components of the discharge history, physical examination, diagnosis, and discharge treatment plan with the resident. I agree with the patient's discharge care as documented by the resident and amended herein by me. Teodoro Rene, DO. The patient and his decided to leave the hospital AGAINST MEDICAL ADVICE. The risks were explained to the patient to include . Prior to discharge, the patient did have prostamegaly and a severely overextended bladder with approximately 1 L of urine as demonstrated by bladder scan. Multiple attempts to place Bennett and coud? catheter were unsuccessfully made. I did consult urology, Dr. Buchanan however urologist unable to come to hospital to assist at the time. I did reach out to general surgery, ED staff and other urologist, Dr. Quintanilla for assistance to no avail. I did speak with the charge nurse about transferring the patient in which she contacted multiple tertiary centers however due to lack of bed availability, or requests with us for denied. This was explained to the patient and his and most likely will push them to the decision to leave AGAINST MEDICAL ADVICE to take matters into their own hands. The patient was also scheduled for EGD to address the initial concern of GI bleed however the patient left prior to the procedure which was scheduled for this evening. Again, the risks were explained to the patient and his however ultimately the patient did leave the hospital AMA. Although this document has been carefully reviewed, there may still be some phonetic and other typographical errors. These errors are purely grammatical due to imperfections in the software program and should not be construed in any way to compromise the substance of the patient's medical care during this visit.
--- NOTE | 2024-05-19 19:20 | PD.IMPROG ---
Documentation for date of: 05/19/24 Subjective Subjective Interval history: Got a call from the internal medicine team Patient has a urological emergency patient has to be transferred tertiary center Patient has been transfused and the EGD canceled till the urological emergencies taken care of at a tertiary center Exam Vital Signs Temp Pulse Resp BP Pulse Ox O2 Del Method 98.1 F 70 17 126/67 98 Room Air 05/19/24 16:00 05/19/24 16:00 05/19/24 16:00 05/19/24 16:00 05/19/24 16:00 05/19/24 16:00 Objective Labs 05/19/24 04:40 05/19/24 04:40 Labs: Laboratory Results - last 24 hr 05/18/24 05/18/24 05/19/24 17:35 21:11 03:59 WBC RBC Hgb Hct MCV MCH MCHC RDW Std Deviation Plt Count Neut % (Auto) Lymph % (Auto) [place] % (Auto) Eos % (Auto) Baso % (Auto) Neut # (Auto) Lymph # (Auto) [place] # (Auto) Eos # (Auto) Baso # (Auto) Immature Gran # (Auto) Absolute Nucleated RBC Immature Gran % Nucleated RBC % Retic Count (auto) Absolute Retic Immature Retic Fraction Retic Hgb Content CHr PT INR APTT Sodium 141 144 Potassium 5.7 H 5.3 H Chloride 111 H 115 H Carbon Dioxide 18.1 L 21.0 Anion Gap 12 8 BUN 54 H 56 H Creatinine 3.7 H 3.5 H Estim Creat Clear Calc 17.8 L 18.8 L eGFR 17 L 18 L BUN/Creatinine Ratio 15 16 Glucose [address] Glu mg/dL Hemoglobin A1c Calculated Osmolality 297 H 301 H Calcium 9.1 8.8 Corrected Calcium 9.2 9.0 Phosphorus 5.1 Magnesium Iron TIBC Iron Saturation Unsat Iron Binding Ferritin Total Bilirubin 0.2 L AST 17 ALT 8 L Alkaline Phosphatase 68 Lactate Dehydrogenase Total Protein 6.4 Albumin 3.9 3.8 Globulin 2.5 Albumin/Globulin Ratio 1.6 Triglycerides Cholesterol LDL Cholesterol, Calc HDL Cholesterol Cholesterol/HDL Ratio Vitamin B12 Folate TSH Free T4 Ur Collection Type Clean Catch Urine Color Colorless A Urine Clarity Clear Urine pH 5.5 Ur Specific [place] 1.014 Urine Protein Negative Urine Glucose (UA) Negative Urine Ketones Negative Urine Blood Negative Urine Nitrite Negative Urine Bilirubin Negative Urine Urobilinogen (Auto) Negative Ur Leukocyte Esterase Positive Urine RBC 1 Urine WBC 5 Ur Squamous Epith Cells < 1 Urine Bacteria None Blood Type O Positive Antibody Screen NEGATIVE Crossmatch See Detail Blood Bank Wristband ID Yes 05/19/24 05/19/24 04:15 04:40 WBC 5.6 RBC 2.50 L Hgb 7.2 L D Hct 21.6 L* MCV 86 MCH 28.8 MCHC 33.3 RDW Std Deviation 49.1 H Plt Count 198 Neut % (Auto) 68 Lymph % (Auto) 19 [place] % (Auto) 10 Eos % (Auto) 3 Baso % (Auto) 1 Neut # (Auto) 3.8 Lymph # (Auto) 1.1 [place] # (Auto) 0.5 Eos # (Auto) 0.2 Baso # (Auto) 0.0 Immature Gran # (Auto) 0.01 H Absolute Nucleated RBC 0.00 Immature Gran % 0 Nucleated RBC % 0 Retic Count (auto) 2.1 H Absolute Retic 51.8 Immature Retic Fraction 23.4 H Retic Hgb Content CHr 31.6 PT 11.8 INR 1.1 APTT 36.8 H Sodium 142 Potassium 5.4 H Chloride 114 H Carbon Dioxide 18.8 L Anion Gap 9 BUN 56 H Creatinine 3.4 H Estim Creat Clear Calc 19.4 L eGFR 18 L BUN/Creatinine Ratio [address] Glu mg/dL 111 Hemoglobin A1c 5.5 Calculated Osmolality 297 H Calcium 8.7 Corrected Calcium 8.9 Phosphorus 4.8 Magnesium 1.7 Iron 70 TIBC 271 Iron Saturation 25 Unsat Iron Binding 201 L Ferritin 58 Total Bilirubin 0.2 L AST 14 ALT 9 L Alkaline Phosphatase 61 Lactate Dehydrogenase 171 Total Protein 5.8 Albumin 3.7 Globulin 2.1 L Albumin/Globulin Ratio 1.8 Triglycerides 83 Cholesterol 79 L LDL Cholesterol, Calc 31 HDL Cholesterol 31 L Cholesterol/HDL Ratio 2.5 L Vitamin B12 262 Folate 7.24 TSH 2.15 Free T4 1.03 Ur Collection Type Urine Color Urine Clarity Urine pH Ur Specific [place] Urine Protein Urine Glucose (UA) Urine Ketones Urine Blood Urine Nitrite Urine Bilirubin Urine Urobilinogen (Auto) Ur Leukocyte Esterase Urine RBC Urine WBC Ur Squamous Epith Cells Urine Bacteria Blood Type Antibody Screen Crossmatch Blood Bank Wristband ID Impressions Impression: # Melena # Acute posthemorrhagic anemia patient status post blood transfusion Okay to transfer the patient GI workup as an outpatient Assessment & Plan A&P Narrative # Melena # Acute posthemorrhagic anemia Plan Agree with the blood transfusion Consent obtained for fiberoptic esophagogastroduodenoscopy with possible therapeutic intervention possible biopsy under intravenous moderate sedation scheduled for tomorrow Clear liquid diet N.p.o. at 9 AM tomorrow Other medical problems include Essential hypertension Hyperlipidemia Diabetes mellitus type 2 Renal insufficiency Time Spent With Patient Time: Total time spent is greater than 50% in coordination of care (as documented) at patient's floor/unit and/or counseling patient:
== END 2024-05-19 18:30 | disposition left against medical advice (07) | DRG 378 ==
LOC: SERX 19:28 → SERHOLD 21:05 → S3SX 23:10
PROVIDERS: Nurse Practitioner Family; Admitting Provider Internal Medicine; Emergency Provider Emergency Medicine; PCP Family Medicine; Visit Provider Student in an Organized Health Care Education/Training Program
DX: K92.1 Melena (principal); D62 Acute posthemorrhagic anemia; N17.9 Acute kidney failure, unspecified; N13.8 Other obstructive and reflux uropathy; I10 Essential (primary) hypertension; E78.00 Pure hypercholesterolemia, unspecified; E11.9 Type 2 diabetes mellitus without complications; E87.5 Hyperkalemia; H91.90 Unspecified hearing loss, unspecified ear; K80.20 Calculus of gallbladder without cholecystitis without obstruction; N30.90 Cystitis, unspecified without hematuria; N40.1 Benign prostatic hyperplasia with lower urinary tract symptoms; Z87.891 Personal history of nicotine dependence; Z53.29 Procedure and treatment not carried out because of patient's decision for other reasons; Z53.09 Procedure and treatment not carried out because of other contraindication
CPT/HCPCS: 36415; 36430; 74176; 80053; 80061; 80069; 81001; 82270; 82607; 82728; 82746; 83036; 83540; 83550; 83615; 83735; 84100; 84439; 84443; 85014; 85018; 85025; 85046; 85610; 85730; 86850; 86900; 86901; 86923; 93005; 93225; 93970; 96374; 99285; J0696; J2270; J2470; J7120; P9016; A9270